=== PATIENT | female | born 1990 | race Hispanic/Latino ===

== ENCOUNTER 2021-04-10 13:33 | Outpatient (CLI) | payer MEDICAID ==
[~2021-04-10 13:33] MED LIST: Iopamidol 300 61% 30 ML VIAL ONE
[2021-04-10 14:13] LABS: BHCG - Serum Negative (NEGATIVE); Pregs Control Background? CLEAR/WHITE (CLR/WHITE); Pregs Control Bar Appear? YES (CONTROL BAR)
== END 2021-04-10 13:34 | disposition home or self-care (01) ==
LOC: RAD 13:33
PROVIDERS: ATTEND Advanced Practice Midwife
DX: N97.9 Female infertility, unspecified (principal)
CPT/HCPCS: 58340; 74740; 84703; Q9967